=== PATIENT | female | born 1985 | race Caucasian/White ===

== ENCOUNTER 2025-02-24 12:52 | Emergency (ER) | payer OTHER, SELFPAY ==
[2025-02-24 12:53] VITALS: BP 126/80; PULSE 95; RESP 16; TEMP 36.7; O2SAT 100
[2025-02-24 15:05] LABS: Hematocrit 39.7 % (37.0-47.0); Hemoglobin 13.3 g/dL (12.0-15.0); Immature Granulocyte Percent A 0.3 % (0-0.5); Lymphocytes Absolute Auto 1.53 K/mm3 (0.9-3.2); Mean Corpuscular HGB Conc 33.5 g/dl (32-36); Mean Corpuscular Hemoglobin 29.1 pg (26-34); Mean Corpuscular Volume 86.9 fl (80-100); Nucleated Red Blood Cells Absolute Auto 0.000 K/mm3 (0.0-0.012); Nucleated Red Blood Cells Perc 0.0 % (0.0-0.2); Platelet Count Result 265 k/mm3 (150-375); Red Blood Count 4.57 M/mm3 (4.2-5.4); White Blood Count 7.8 K/mm3 (4.5-10.0)
[2025-02-24 15:15] LABS: BEDSIDEPREGUCG Negative (Negative)
[2025-02-24 15:20] LABS: Add Urine Microscopic? YES; Appearance Urine Clear (Clear); Glucose Urine UA Negative (Negative); Leukocyte Esterase Ur Negative LEU/UL (Negative); Nitrate Urine Negative (Negative); Non Pathogenic Casts 0-2; Specific Grav Ur > 1.045 (1.001-1.035)
[2025-02-24 15:27] LABS: Alanine Aminotransferase 18 U/L (6-35); Albumin Level 4.3 g/dL (3.5-5.1); Alkaline Phosphatase 66 U/L (38-126); Anion Gap 6 mmol/L (4-12); Aspartate Amino Transferase 26 U/L (14-36); Bilirubin,Total 1.1 mg/dL (0.2-1.3); Blood Urea Nitrogen 8 mg/dL (7-17); Calcium 8.9 mg/dL (8.4-10.2); Carbon Dioxide 26 mmol/L (22-30); Chloride 107 mmol/L (98-107); Estimated CRCL calculation 86 ml/min; Estimated Glomerular Filt Rate > 60; Glucose 86 mg/dL (65-110); Lipase 43 U/L (23-300); Potassium 4.0 mmol/L (3.4-5.0); Sodium 139 mmol/L (137-145); Total Protein 7.4 g/dL (6.3-8.2)
--- NOTE | 2025-02-24 15:31 | ED_ITS ---
HPI - General Adult General Chief complaint: Abdominal Pain Stated complaint: abd pain Time Seen by Provider: 02/24/25 14:52 History of Present Illness HPI narrative: 40-year-old female present to the emergency department for evaluation for 3 days of left lower quadrant abdominal pain. Patient presented to an outpatient urgent care and did have a CT scan which showed mesenteric adenitis and possible ileus. Patient's left ovary was not visualized on the CT scan but patient does have a history of a left-sided oophorectomy. Patient was referred to the emergency department for further evaluation. Patient states she is still having some left lower quadrant abdominal pain. Related Data Allergies Allergy/AdvReac Type Severity Reaction Status Date / Time No Known Allergies Allergy Verified 02/24/25 12:55 Review of Systems 2 Review of Systems: All systems reviewed & are unremarkable except as noted in HPI and below Exam 2 Narrative: APPEARANCE: Well appearing, no pain, no distress, well-nourished. HEAD: normocephalic, atraumatic. EYES: PERRLA/EOMI, conjunctivae clear. NOSE: Normal no drainage EARS:TMS clear with good light reflex. THROAT: Pharynx clear, no exudate. NECK: Supple. No adenopathy, no masses. RESPIRATORY: Airway patent, respirations nonlabored. Clear to auscultation bilaterally, no rales, rhonchi, wheezing. CARDIOVASCULAR: Regular rate and rhythm without murmurs rubs or gallops. ABDOMINAL: nonsurgical abdomen, left upper quadrant tenderness to palpation MUSCULOSKELETAL: Moves all extremities. Strength/ROM intact, No edema, No calf tenderness. NEURO: Alert. Cranial nerves II through XII intact. Good gait. Good coordination SKIN: Warm, dry. Normal Color Course Vital Signs Vital signs: Vital Signs Temperature 98.1 F 02/24/25 12:53 Pulse Rate 95 02/24/25 12:53 Respiratory Rate 16 02/24/25 12:53 Blood Pressure 126/80 02/24/25 12:53 Pulse Oximetry 100 02/24/25 12:53 Oxygen Delivery Room Air 02/24/25 12:53 Temperature 98.1 F 02/24/25 12:53 Pulse Rate 87 02/24/25 17:32 Respiratory Rate 20 02/24/25 17:32 Blood Pressure 136/84 02/24/25 17:32 Pulse Oximetry 100 02/24/25 17:32 Oxygen Delivery Room Air 02/24/25 12:53 MDM MDM Narrative Medical decision making narrative: 40-year-old female presents emergency department for evaluation for left lower quadrant abdominal pain. Patient does have outs head imaging showing mesenteric adenitis. Patient is currently afebrile no leukocytosis hemoglobin 13.3. Patient has no acute abnormalities on her CMP with normal kidney function. Lipase is not elevated. UA is negative for infection. Patient was positive for ketones on her urine. Patient will be treated with 2 L of lactated Ringer's. Patient was also provided Toradol for IV pain control and 4 mg of IV Zofran. Patient did provide her imaging and this is loaded into the system. Patient was well-appearing at time of initial evaluation. Patient does have some left upper abdominal pain but no lower abdominal tenderness to palpation. On re-evaluation patient states she does feel significantly improved. Patient will provided Zofran for nausea control and Naprosyn for the next few days. Patient was encouraged of close follow-up with primary care physician. Patient is also encouraged to follow a clear liquid diet for the next few days. All questions concerns were addressed patient was well-appearing at time of discharge. Differential Diagnosis Differential Diagnosis: colitis, diverticulitis, appendicitis, cholecystitis, mesenteric adenitis Lab Data 02/24/25 15:01 02/24/25 15:01 Labs: Lab Results 02/24/25 02/24/25 02/24/25 Range/Units 15:01 15:08 15:13 WBC 7.8 (4.5-10.0) K/mm3 RBC 4.57 (4.2-5.4) M/mm3 Hgb 13.3 (12.0-15.0) g/dL Hct 39.7 (37.0-47.0) % MCV 86.9 (80-100) fl MCH 29.1 (26-34) pg MCHC 33.5 (32-36) g/dl RDW 12.6 (11.5-14.5) % Plt Count 265 (150-375) k/mm3 MPV 9.8 (7.4-10.4) fl Immature Gran % (Auto) 0.3 (0-0.5) % Neut % (Auto) 67.7 (45.5-73.1) % Lymph % (Auto) 19.6 (18.3-44.2) % [place] % (Auto) 5.9 (2.6-8.5) % Eos % (Auto) 6.2 H (0-4.4) % Baso % (Auto) 0.3 (0.2-1.2) % Lymph # (Auto) 1.53 (0.9-3.2) K/mm3 [place] # (Auto) 0.5 (0.1-0.6) K/mm3 Eos # (Auto) 0.5 H (0-0.3) K/mm3 Baso # (Auto) 0.0 (0.0-0.1) K/mm3 Abs Immat Gran (auto) 0.02 (0.00-0.031) K/mm3 Absolute Neuts (auto) 5.3 (1.3-6.7) K/mm3 Absolute Nucleated RBC 0.000 (0.0-0.012) K/mm3 Nucleated RBC % 0.0 (0.0-0.2) % Sodium 139 (137-145) mmol/L Potassium 4.0 (3.4-5.0) mmol/L Chloride 107 (98-107) mmol/L Carbon Dioxide 26 (22-30) mmol/L Anion Gap 6 (4-12) mmol/L BUN 8 (7-17) mg/dL Creatinine 0.57 L (0.7-1.0) mg/dL Estim Creat Clear Calc 86 ml/min Estimated GFR > 60 (59 - ) Glucose 86 (65-110) mg/dL Calcium 8.9 (8.4-10.2) mg/dL Total Bilirubin 1.1 (0.2-1.3) mg/dL AST 26 (14-36) U/L ALT 18 (6-35) U/L Alkaline Phosphatase 66 (38-126) U/L Total Protein 7.4 (6.3-8.2) g/dL Albumin 4.3 (3.5-5.1) g/dL Lipase 43 (23-300) U/L Urine Color Yellow (Yellow) Urine Appearance Clear (Clear) Urine pH 6.5 (5.0-9.0) Ur Specific [place] > 1.045 H (1.001-1.035) Urine Protein Trace (Negative) mg/dL Urine Glucose (UA) Negative (Negative) mg/dL Urine Ketones 4+ H (Negative) mg/dL Ur Blood (Man) Negative (Negative) Urine Nitrate Negative (Negative) Urine Bilirubin Negative (Negative) Urine Urobilinogen 0.2 (<2.0) mg/dL Leukocyte Esterase Rfl Negative (Negative) PERLA/UL Urine RBC 0-2 (0-2) /hpf Urine WBC 0-5 (0-3) /hpf Ur Squamous Epith Cells Few (Few) /hpf Urine Bacteria 1+ H /hpf Urine Casts 0-2 POC Urine HCG, Qual Negative (Negative) Discharge Plan Discharge Clinical Impression: Mesenteric adenitis Patient Disposition: Home Condition: Stable Instructions: Antibiotic Form, Clear Liquid Diet (ED), Abdominal Pain (ED), Mesenteric Adenitis (ED) Additional Instructions: naproxen as directed for the next few days. Zofran as needed for nausea control. Clear liquid diet for the next 1-3 days. Have close follow-up with your primary care physician. If you have any worsening symptoms then please call or return to the emergency department. Patient Language: Bel[place]ian Prescriptions: New ondansetron 4 mg tablet,disintegrating 4 mg PO Q8H PRN (Reason: nausea and vomiting) Qty: 14 0RF naproxen [Naprosyn] 500 mg tablet 500 mg PO BID 5 Days Qty: 10 0RF Follow-up/Referrals: PHYSICIAN,PROGRAM MANAGEMENT SPECIALIST [Non-Staff, Internal Medicine] Stand Alone Forms: Work/School Release IP
[2025-02-24] MEDS: KETOROLAC 30 MG/ML VIAL (*BKC) IV PUSH (15:34)
[2025-02-24] MEDS: ONDANSETRON INJ 4 MG/2 ML VIAL IV PUSH (15:36)
[2025-02-24] MEDS: LACTATED RINGERS 1,000 ML 999 ML IV CONT (15:38)
[2025-02-24 17:32] VITALS: BP 136/84; PULSE 87; RESP 20; O2SAT 100
== END 2025-02-24 17:43 | disposition home or self-care (01) ==
PROVIDERS: Emergency Medicine; Emergency Provider Emergency Medicine
DX: I88.0 Nonspecific mesenteric lymphadenitis (principal); Z90.721 Acquired absence of ovaries, unilateral
CPT/HCPCS: 36415; 80053; 81001; 81025; 83690; 85025; 96361; 96374; 96375; 99284; J1885; J2405; J7120